=== PATIENT | female | born 1940 | race Caucasian/White ===

== ENCOUNTER 2017-04-25 06:04 | Emergency (ER) | payer MEDICARE ==
[~2017-04-25] VITALS: Ht 167.6 cm; Wt 84.1 kg
[~2017-04-25 06:04] MED LIST: B COTAB3 PO; CALC500 PO; CALC600T34 PO; ESTR42.5V PV; FISH1000 PO; NITR50CA27 PO; NOVOLOG PUMP SC; SYNT112T PO; TAB-TAB PO; TRIL135C PO; VITA400C28 PO
[2017-04-25 06:17] VITALS: BP 139/80; PULSE 60; RESP 12; TEMP 97.5; O2SAT 95
[2017-04-25 07:05] VITALS: BP 175/91; PULSE 66; RESP 18; O2SAT 97
[2017-04-25] MEDS ORDERED: TRIL135C PO (07:14)
[2017-04-25] MEDS ORDERED: LEVO112T2 PO (07:14)
[2017-04-25] MEDS ORDERED: CALC1TAB12 PO (07:14)
[2017-04-25] MEDS ORDERED: NRDRIP (07:14)
[2017-04-25] MEDS ORDERED: VITACAP7 PO (07:14)
[2017-04-25] MEDS ORDERED: FISH1000 PO (07:14)
[2017-04-25] MEDS ORDERED: ESTR0.5T PO (07:14)
--- NOTE | 2017-04-25 07:14 | PD ---
HPI Chief Complaint: Musculoskeletal Complaint Time Seen by Provider: 07:03 Travel History International Travel<30 days: No Contact w/Intl Traveler<30days: No Traveled to known affect area: No History of Present Illness HPI 76-year-old female presents with cramping to her arms and legs is been present over the past day or so. She states it got worse at night. She does note a recent car trip to [place] 2 weeks ago. She denies any difficulty breathing, chest pain, fever or other concurrent complaints. She states she went to [facility] and asked for advice and they did not recommend magnesium given her medical history and they advised her to come here. She states she is not on a statin but on a another cholesterol medication that they were worried because her muscle issues. Quality is cramping. Severity is all over. Location bilateral arms and bilateral legs. Duration is one day. Pain is worse with movement. Denies other modifying factors. She states that she tried Gatorade to see if that would help and it made her sugar go up to 300 for which she covered herself with insulin. PFSH Past Medical History Arthritis: Yes Cancer: No High Cholesterol: Yes Diabetes: Yes Diminished Hearing: No Glaucoma: No Hepatitis: No Hiatal Hernia: Yes Thyroid Disease: Yes (hypo) ?: Not Menopausal: Yes Past Surgical History Abdominal Surgery: No Appendectomy: Yes Cardiac Surgery: No Ear Surgery: No Endocrine Surgery: No Eye Surgery: No Genitourinary Surgery: No Hysterectomy: Yes Oral Surgery: No Pacemaker: No Thoracic Surgery: No Other Surgery: Yes (R elbow Surgery ) Social History Alcohol Use: Yes (OCCASIONAL) Tobacco Use: No Substance Use: No Allergies-Medications (Allergen,Severity, Reaction): Coded Allergies: Doxycycline (Verified Allergy, Severe, Nausea/Vomiting, 01/26/16) *MDRO Multi-Drug Resistant Organism (Verified Allergy, Unknown, 08/03/15) C-diff 10/2013 Reported Meds & Prescriptions Reported Meds & Active Scripts Active Reported Novolin R Inj (Insulin Human Regular) 100 Unit/Ml Inj 16 Fish Oil ([place]-3 Fatty Acids) 1,000 Mg Cap 1 Tab PO DAILY B Complex (B-Complex Vitamins) 1 Cap 1 Cap PO DAILY Calcium 500 +D (Calcium Carbonate-Cholecalciferol) 500-400 Mg-Unit Tab 1 Tab PO DAILY Estradiol 0.5 Mg Tab 0.5 Mg PO DAILY Trilipix (Choline Fenofibrate DR) 135 Mg Capdr 135 Mg PO DAILY Levothyroxine (Levothyroxine Sodium) 112 Mcg Tab 112 Mcg PO DAILY [Novolog Pump] 1 Unit SC HOURLY Review of Systems Except as stated in HPI: all other systems reviewed are Neg Physical Exam Narrative GENERAL: Well-nourished, well-developed patient. SKIN: Warm and dry. HEAD: Normocephalic and atraumatic. EYES: No injection or drainage. ENT: No nasal drainage noted. NECK: Supple, trachea midline. CARDIOVASCULAR: Regular rate and rhythm RESPIRATORY: Breath sounds equal bilaterally. No accessory muscle use. GASTROINTESTINAL: Abdomen soft, non-tender, nondistended. EXTREMITIES: No edema. No calf pain bilaterally, neurovascularly intact with posterior tibialis bilaterally NEUROLOGICAL: Awake and alert. Motor and sensory grossly within normal limits. Normal speech. Data Data Last Documented VS Vital Signs Date Time Temp Pulse Resp B/P Pulse Ox O2 Delivery O2 Flow Rate FiO2 04/25/17 09:29 65 18 132/70 99 04/25/17 07:54 Room Air 04/25/17 06:17 97.5 Orders Us Leg Venous Doppler Bilat (04/25/17 07:09) Magnesium (Mg) (04/25/17 07:09) Phosphorus (Po4) (04/25/17 07:09) Complete Blood Count With Diff (04/25/17 07:09) Basic Metabolic Panel (Bmp) (04/25/17 07:09) Creatine Kinase (Cpk) (04/25/17 07:09) Act Partial Throm Time (Ptt) (04/25/17 07:09) Prothrombin Time / Inr (Pt) (04/25/17 07:09) Iv Access Insert/Monitor (04/25/17 07:09) Ecg Monitoring (04/25/17 07:09) Oximetry (04/25/17 07:09) Sodium Chlorid 0.9% 500 Ml Inj (Ns 500 M (04/25/17 07:15) Labs Laboratory Tests Test 04/25/17 04/25/17 07:40 08:10 White Blood Count 7.6 TH/MM3 Red Blood Count 5.13 MIL/MM3 Hemoglobin 15.3 GM/DL Hematocrit 46.3 % Mean Corpuscular Volume 90.3 FL Mean Corpuscular Hemoglobin 29.8 PG Mean Corpuscular Hemoglobin 33.0 % Concent Red Cell Distribution Width 12.9 % Platelet Count 245 TH/MM3 Mean Platelet Volume 8.9 FL Neutrophils (%) (Auto) 70.3 % Lymphocytes (%) (Auto) 19.4 % Monocytes (%) (Auto) 8.4 % Eosinophils (%) (Auto) 1.3 % Basophils (%) (Auto) 0.6 % Neutrophils # (Auto) 5.4 TH/MM3 Lymphocytes # (Auto) 1.5 TH/MM3 Monocytes # (Auto) 0.6 TH/MM3 Eosinophils # (Auto) 0.1 TH/MM3 Basophils # (Auto) 0.0 TH/MM3 CBC Comment DIFF FINAL Differential Comment Prothrombin Time 10.8 SEC Prothromb Time International 1.0 RATIO Ratio Activated Partial 26.8 SEC Thromboplast Time Sodium Level 139 MEQ/L Potassium Level 4.1 MEQ/L Chloride Level 102 MEQ/L Carbon Dioxide Level 29.1 MEQ/L Anion Gap 8 MEQ/L Blood Urea Nitrogen 14 MG/DL Creatinine 1.20 MG/DL Estimat Glomerular Filtration 44 ML/MIN Rate Random Glucose 238 MG/DL Calcium Level 9.1 MG/DL Phosphorus Level 2.1 MG/DL Magnesium Level 2.0 MG/DL Total Creatine Kinase 67 U/L MDM Medical Decision Making Medical Screen Exam Complete: Yes Emergency Medical Condition: Yes Medical Record Reviewed: Yes (past history confirmed) Interpretation(s) CBC & BMP Diagram 04/25/17 07:40 04/25/17 08:10 ble doppler no dvt Differential Diagnosis Rhabdomyolysis, renal failure, electrolyte abnormality, DVT Narrative Course Will check blood work, ultrasound and dose with fluids and reevaluate ed workup no emergent process, Patient denies any new complaints and states that they are feeling better, all questions answered. Patient knows that follow up is incumbent on them and to return to the emergency room immediately if new or worsening symptoms develop. Patient given strict return precautions, vitals reviewed and are normal, agrees to further workup as an outpatient. Diagnosis Primary Impression: Cramps, muscle, general Patient Instructions: General Instructions Additional Instructions: tylenol as needed, follow with primary next 1-2 days Med/Other Pt SpecificInfo: No Change to Meds Disposition: 01 DISCHARGE HOME Condition: Stable Ekaterina Magaña MD Apr 25, 2017 07:14 Ekaterina Magaña MD Apr 25, 2017 07:14
[2017-04-25] MEDS ORDERED: SODIUM CHLORID 0.9% 500 ML INJ 500 ML IV ONE (07:15)
[2017-04-25 07:47] LABS: AUTOMATED NEUTROPHIL # 5.4 TH/MM3 (1.8-7.7); BASOPHIL % 0.6 % (0.0-2.0); EOSINOPHIL # 0.1 TH/MM3 (0-0.4); EOSINOPHIL % 1.3 % (0.0-4.0); HEMATOCRIT 46.3 % (35.0-46.0); HEMO FLAGS DIFF FINAL; LYMPH % 19.4 % (9.0-44.0); LYMPHOCYTE # 1.5 TH/MM3 (1.0-4.8); MEAN CELL VOLUME 90.3 FL (80.0-100.0); MEAN CORPUSCULAR HEMOGLOBIN 29.8 PG (27.0-34.0); MONO % 8.4 % (0.0-8.0); NEUT % 70.3 % (16.0-70.0); PLATELET COUNT 245 TH/MM3 (150-450); RED BLOOD COUNT 5.13 MIL/MM3 (4.00-5.30); RED CELL DISTRIBUTION WIDTH 12.9 % (11.6-17.2); WHITE BLOOD COUNT 7.6 TH/MM3 (4.0-11.0)
[2017-04-25 07:54] VITALS: O2SAT 96
[2017-04-25 08:04] LABS: APTT (PATIENT) 26.8 SEC (24.3-30.1); PROTHROMBIN TIME - PATIENT 10.8 SEC (9.8-11.6)
[2017-04-25 08:27] LABS: POTASSIUM 4.1 MEQ/L (3.5-5.1)
[2017-04-25 08:32] LABS: BICARBONATE 29.1 MEQ/L (21.0-32.0)
--- NOTE | 2017-04-25 09:09 | RADHPO ---
EXAM DATE/TIME: 04/25/2017 08:14 [facility] COMPARISON: No previous studies available for comparison. INDICATIONS : Bilateral leg edema. MEDICAL HISTORY : Hypercholesterolemia. Gastroesophageal reflux disease. Thyroid disease. Peripheral neuropathy. Faby l valve prolaspe. Hypertension. Asthma. Hiatal hernia. Diabetes. SURGICAL HISTORY : Tonsillectomy. ENCOUNTER: Initial ACUITY: 1 day PAIN SCORE: 4/10 LOCATION: Bilateral legs. TECHNIQUE: Venous ultrasound of the left and right leg was performed from the inguinal ligament to the proximal calf. Real-time, color Doppler and spectral tracing, compression and augmentation techniques were us ed. FINDINGS: RIGHT LEG: There is normal compressibility of the deep venous system from the inguinal region to the proximal ca lf. No echogenic clot is seen in the lumen of the common femoral, femoral, popliteal, and posterior tibial veins. There is a normal response of the venous system to proximal and distal augmentation an d respiration. LEFT LEG: There is normal compressibility of the deep venous system from the inguinal region to the proximal ca lf. No echogenic clot is seen in the lumen of the common femoral, femoral, popliteal, and posterior tibial veins. There is a normal response of the venous system to proximal and distal augmentation an d respiration. CONCLUSION: No evidence of acute DVT. Scott Isaac MD on April 25, 2017 at 9:06 Board Certified Radiologist. This report was verified electronically.
[2017-04-25 09:29] VITALS: BP 132/70
== END 2017-04-25 09:30 | disposition home or self-care (01) ==
LOC: PHED 06:04
DX: R25.2 Cramp and spasm (principal); R60.0 Localized edema; E03.9 Hypothyroidism, unspecified; E11.9 Type 2 diabetes mellitus without complications; Z79.4 Long term (current) use of insulin; Z79.899 Other long term (current) drug therapy
CPT/HCPCS: 80048; 82550; 83735; 84100; 85025; 85610; 85730; 93970; 96360; 99285; J7040